=== PATIENT | male | born 1940 | race Caucasian/White ===

== ENCOUNTER 2022-11-01 04:17 | Day surgery (SDC) | payer OTHER ==
[2022-10-30 10:15] VITALS: BMI 34.9
[~2022-11-01 04:17] MED LIST: ACETAMINOPHEN 325 MG TABLET (FP) PO PRN
[2022-11-01] MEDS ORDERED: OFLOXACIN 0.3% OPHTHALMIC SOLUTION 5 ML BOTTLE ONE (09:04)
[2022-11-01 09:13] VITALS: RESP 18
[2022-11-01] MEDS: OFLOXACIN 0.3% OPHTHALMIC SOLUTION 5 ML BOTTLE OP SCH ×3 (09:35→09:45)
[2022-11-01] MEDS ORDERED: MIDAZOLAM HCL 2 MG/2 ML SINGLE DOSE VIAL ONE (10:02)
[2022-11-01] MEDS ORDERED: TRIAMCINOLONE ACET 40MG/1ML VIAL ONE (10:12)
[2022-11-01] MEDS ORDERED: TETRACAINE 0.5% OPHTH SOLN 2 ML BOTTLE ONE (10:35)
[2022-11-01] MEDS ORDERED: POVIDONE-IODINE 5% OPHTHALMIC PREP 30 ML SOLUTION ONE (10:44)
[2022-11-01] MEDS ORDERED: TETRACAINE 0.5% OPHTH SOLN 2 ML BOTTLE OS ONE (11:01)
[2022-11-01] MEDS ORDERED: POVIDONE-IODINE 5% OPHTHALMIC PREP 30 ML SOLUTION OS ONE (11:03)
[2022-11-01] MEDS ORDERED: TRIAMCINOLONE ACET 40MG/1ML VIAL IM ONE (11:32)
[2022-11-01] MEDS ORDERED: KETOROLAC TROMETHAMINE 30 MG/1 ML VIAL ONE (11:33)
[2022-11-01 14:39] VITALS: BP 129/67; PULSE 58; TEMP 97.9
== END 2022-11-01 13:05 | disposition home or self-care (01) ==
LOC: JASU-SURG 04:17
PROVIDERS: ATTEND Ophthalmology
PROC: 08U107Z Supplement of Left Eye with Autologous Tissue Substitute, Open Approach (ICD-10-PCS; principal; 2022-11-01 11:00)
DX: H11.002 Unspecified pterygium of left eye (principal)
CPT/HCPCS: 82962; 88304-TC